=== PATIENT | female | born 1990 | race Caucasian/White ===

== ENCOUNTER 2020-06-02 23:27 | Emergency (ER) | payer OTHER ==
[~2020-06-02] VITALS: Ht 182.9 cm; Wt 72.4 kg
--- NOTE | 2020-06-02 23:50 | NUR ---
PT AMBULATED TO ROOM, HAS REDNESS AND RAISED REDNESS WHICH APPEAR TO BE HIVES, TO BILATERAL ELBOWS, AND 5TH DIGIT ON FEET BILATERALLY. RED AND PT STATES MILDLY ITCHY. PT, PER PA ASSESMENT, HAS RED MERCADO WHICH MAY APPEAR TO BE BITES TO THE BUTTOCKS AND BACK OF THIGHS. PT IN NO ACUTE DISTRESS AND NO RESPIRATORY DISTRESS.
[2020-06-03] MEDS ORDERED: FAMOTIDINE 20 MG TABLET PO ONE
[2020-06-03] MEDS ORDERED: FAMOTIDINE 20 MG TABLET ONE
--- NOTE | 2020-06-03 00:08 | NUR ---
ORDERS RECEIVED, AND PT MEDICATED PER MAR.
--- NOTE | 2020-06-03 00:24 | NUR ---
PT STATES THAT SHE HAS NEW HIVES SHOWING UP ON HER LEFT FOREARM. NOTED AND REHAB SERVICES AIDE NOTIFIED. PT HAS BEEN MEDICATED AND WAS ADVISED WE WOULD BE WATCHING HER FOR THE NEXT HOUR TO MAKE SURE THE HIVES WENT AWAY.
--- NOTE | 2020-06-03 00:49 | NUR ---
REPORT FROM SANTOS ABBOTT
[2020-06-03 00:53] VITALS: BP 118/74
--- NOTE | 2020-06-03 00:54 | NUR ---
REPORT AND CARE TO ORIANA ABBOTT
--- NOTE | 2020-06-03 00:56 | NUR ---
PT SITTING UPRIGHT ON NAHUM RIDLEY VSS. PT STATES "[facility] HAS IMPROVED AFTER MEDS". PT DENIES ANY NEEDS AT THIS TIME. CALL L[facility] AND BELONGINGS WITHIN REACH
--- NOTE | 2020-06-03 01:06 | NUR ---
Patient given discharge instructions and they have confirmed that they understand the instructions. Patient ambulatory with steady gait.
== END 2020-06-03 01:13 | disposition home or self-care (01) ==
LOC: EDSEX 23:27 → ED 06-03 01:00
DX: L50.0 Allergic urticaria (principal)
CPT/HCPCS: 99284; J7512; Q0177

== ENCOUNTER 2020-06-04 10:51 | Emergency (ER) | payer OTHER ==
[~2020-06-04] VITALS: Ht 182.9 cm; Wt 70.8 kg
[2020-06-04 10:58] VITALS: BP 107/76
--- NOTE | 2020-06-04 11:10 | NUR ---
PT BROUGHT BACK TO ROOM FROM TRIAGE. PT STATED THAT SHE WAS IN THE ER 2 DAYS AGO FOR AN ALLERGICA REACTION ON HER HANDS AND LEGS. PT CAME BACK TO ER TODAY BECAUSE SHE NOTED SOME HIVES AROUND HER MOUTH AND ON HER FACE. PT DENIES ANY SOB OR DIFFICULTY BREATHING. PT APPEARS COMFORTABLE WITH NORMAL RESPIRATIONS. PT STATED THAT SHE IS UNSURE WHAT SHE WAS EXPOSED TO THAT IS CAUSING THIS REACTION. PT STATED THAT SHE TESTED POSITIVE FOR COVID 11 DAYS AGO AND IS NOT EXPERIENCING ANY SYMPTOMS.
[2020-06-04] MEDS ORDERED: FAMOTIDINE 20 MG TABLET ONE (11:26)
[2020-06-04] MEDS ORDERED: FAMOTIDINE 20 MG TABLET PO ONE (11:30)
--- NOTE | 2020-06-04 12:27 | NUR ---
DISCHARGE INSTRUCTIONS REVIEWED WITH PT. ALL QUESTIONS ANSWERED AT THIS TIME
== END 2020-06-04 12:29 | disposition home or self-care (01) ==
LOC: ED 12:20
DX: L50.9 Urticaria, unspecified (principal); B34.9 Viral infection, unspecified
CPT/HCPCS: 99283; J7512